=== PATIENT | male | born 1970 | race Two or more races ===

== ENCOUNTER 2024-07-09 21:50 | Emergency (ER) | payer MEDICAID, SELFPAY ==
[2024-07-09 21:53] VITALS: BMI 32.9
--- NOTE | 2024-07-09 22:12 | EKG_ITS ---
[facility] Test Date: 2024-07-09 Pat Name: KENDY WHITT Department: Room: - Gender: Male [employer]: : 1970 Requested By: Angel Coronado Order Number: [id number] Reading MD: Angel Coronado Measurements Intervals [place] Rate: 81 P: 32 MD: 163 QRS: 7 QRSD: 93 T: 31 QT: 368 QTc: 429 Interpretive Statements SINUS RHYTHM No previous ECG available for comparison /store/S0/[id number]/ecg/[id number].pdf
[2024-07-09 22:54] VITALS: BP 179/94; PULSE 80; RESP 19; TEMP 36.6; O2SAT 98
--- NOTE | 2024-07-09 23:13 | XR_ITS ---
Examination: CT brain head without contrast. 2-D sagittal coronal reconstructions Date and time of exam:July 09, 2024 11:31 PM INDICATIONS: Dizziness nausea vomiting today CTDI: vol (mGy):48.7 DLP: (mGycm):1003 Technique: Multiple CT axial sections of the brain have been obtained, 5 mm slice thickness. Contrast has not been administered. 2-D sagittal, coronal reconstructions have been obtained Low dose protocols were performed. One or more of the following dose reduction techniques were used; automated exposure control, adjustment of the mA and/or KV according to patient size, use of iterative reconstruction technique. Findings: No significant ventricular enlargement. Intra-axial or extra-axial hemorrhage density is not seen. No mass effect or midline shift Basal cisterns are not remarkable. Fourth ventricle is midline. Cranial vault intact. Chronic maxillary sinusitis Impression: Negative for acute hemorrhage, mass effect or midline shift Advise clinical correlation and follow up accordingly
--- NOTE | 2024-07-09 23:13 | XR_ITS ---
Examination: PA chest single view TECHNIQUE: Upright PA chest single view Exam date and time: July 09, 2024 11:25 PM INDICATIONS: Onset weakness today FINDINGS: Normal heart size. The lungs are clear. The osseous structures are intact IMPRESSION: No active disease
--- NOTE | 2024-07-09 23:14 | PD.EDRME ---
Rapid Medical Screening Exam [facility] Arrival date/time: 07/09/24 21:50 54M with history of DM and HTN (not very adherent with meds for both conditions) presents to ED with dizziness, generalized weakness, and some N/V. Patient also has a mild GUZMAN. Symptoms started this afternoon. Chief Complaint: Dizziness Vital signs: Vital Signs Temperature 97.9 F 07/09/24 22:54 Pulse Rate 80 07/09/24 22:54 Respiratory Rate 19 07/09/24 22:54 Blood Pressure 179/94 H 07/09/24 22:54 Pulse Oximetry (%) 98 07/09/24 22:54 Oxygen Delivery Method Room Air 07/09/24 22:54
[2024-07-09 23:37] LABS: Collection Type, Urine Clean Catch; Squamous Epithelial Cell,Urine 0 /hpf (0-5)
[2024-07-10 00:21] LABS: Beta Hydroxybutyrate 0.1 mmol/L (<0.6)
[2024-07-10 00:26] LABS: Basophils % (Auto) 0 % (0-2.5); Eosinophils # (Auto) 0.1 Thou/mm3 (0.0-0.5); Eosinophils % (Auto) 2 % (0-10); Hematocrit 38.5 % (41.0-53.0); Hemoglobin 13.3 g/dL (13.5-16.0); Immature Granulocytes % (Auto) 0 % (0-0); Immature Granulocytes Auto 0.01 Thou/mm3 (0.00-0.00); Lymphocytes # (Auto) 0.9 Thou/mm3 (1.0-4.8); Lymphocytes % (Auto) 17 % (10-50); Mean Corpuscular HGB Conc 34.5 g/dl (31.0-37.0); Mean Corpuscular Hemoglobin 28.6 pg (25.0-35.0); Mean Corpuscular Volume 83 fL (80-100); Monocytes # (Auto) 0.5 Thou/mm3 (0.0-0.8); Monocytes % (Auto) 9 % (0-12); Neutrophils # (Auto) 3.9 Thou/mm3 (1.8-7.7); Neutrophils % (Auto) 72 % (37-80); Nucleated Red Blood Cell % 0 /100 WBC (0); Platelet Count 139 Thou/mm3 (140-440); RDW Standard Deviation 37.6 fL (35.1-43.9); Red Blood Count 4.65 Miln/mm3 (4.50-5.90); White Blood Count 5.4 Thou/mm3 (3.8-10.6)
[2024-07-10 00:30] LABS: Ammonia 33 uMol/L (11-32)
[2024-07-10 00:35] LABS: INR 1.1 (0.9-1.3); Partial Thromboplastin Time 29.6 Seconds (22.0-36.0); Prothrombin Time 12.4 Seconds (9.0-12.2)
[2024-07-10 00:42] LABS: Bilirubin,Urine Negative (Negative); Blood,Urine Trace (Negative); Clarity,Urine Clear (Clear/Hazy); Color,Urine Yellow (Lt Yel-Yel); Glucose, Urine 4+ (Negative); Ketones,Urine Negative (Negative); Leukocyte Esterase,Urine Negative (Negative); Nitrite,Urine Negative (Negative); PH,Urine 6.5 (5.0-7.0); Protein,Urine 1+ (Neg - Trace); RBC,Urine 4 /hpf (0-3); Specific Gravity,Urine 1.025 (1.001-1.035); WBC,Urine 4 /hpf (0-5)
[2024-07-10 01:10] LABS: Amphetamine/Methamp Scrn,U Negative (Negative); Barbiturate Screen,Urine Negative (Negative); Benzodiazepines Screen,Urine Negative (Negative); Benzoylecgonine Screen, Ur Negative (Negative); Fentanyl Screen,Urine Negative (Negative); Opiate Screen,Urine Negative (Negative); THC Screen,Urine Negative (Negative)
[2024-07-10 01:26] LABS: Alanine Aminotransferase 35 U/L (10-49); Albumin, Serum 4.4 gm/dL (3.5-5.0); Albumin/Globulin Ratio 1.3 (1.2-2.2); Alcohol, Blood Medical < 3.0 mg/dL (0-10.0); Alkaline Phosphatase 174 U/L (46-116); Anion Gap 7 (7-16); Aspartate Amino Transferase 33 U/L (0-34); BUN/Creatinine Ratio 15 Ratio (12-20); Bilirubin,Total 0.7 mg/dL (0.3-1.2); Blood Urea Nitrogen 9 mg/dL (9-23); Calcium 8.8 mg/dL (8.3-10.6); Calcium (Corrected) 8.8 mg/dL (8.5-10.1); Chloride 101 mMol/L (98-107); Creatinine (Component) 0.6 mg/dL (0.6-1.3); Estimated Creatinine Clearance 133.3 mL/min (>60); Globulin 3.3 gm/dL (2.3-3.5); Glucose 288 mg/dL (74-106); Lipase 32 U/L (12-53); Osmolality,Calculated 279 (275-295); Potassium 3.8 mMol/L (3.4-5.1); Sodium 135 mMol/L (136-145); Total Protein 7.7 gm/dL (5.7-8.2); Troponin I < 0.020 ng/mL (0.0-0.045); eGFR > 60 See Note
--- NOTE | 2024-07-10 02:07 | PD.EDDIZZY ---
ED Dizzyness RME/HPI General Chief Complaint: Dizziness Stated Complaint: DIABETES, N/V DIZZY Arrival date/time: 07/09/24 21:50 RME / HPI RME / HPI Narrative: 07/09/24 21:50 54M with history of DM and HTN (not very adherent with meds for both conditions) presents to ED with dizziness, generalized weakness, and some N/V. Patient also has a mild GUZMAN. Symptoms started this afternoon. --------- Dr. Franco?s Main ED Evaluation: 54yo male with a history of DM, HTN presents to the ED for a chief complaint of dizziness x 1 day. Patient states I feel like I'm drunk and the room is moving . He notes he had 2 emetic episodes today. He denies any headache, weakness or any other associated. Patient states the last time he felt like this was when he was first diagnosed with diabetes 1 year ago. He is not on any medications and is getting them on Saturday . No known allergies. Related Data Allergies Allergy/AdvReac Type Severity Reaction Status Date / Time NKA* Allergy Uncoded 12/31/09 19:23 Review of Systems Review of Systems Systems Reviewed: All systems reviewed, normal except as documented Narrative Review of Systems: Gen: No fever, no chills, no weight loss EYES: No discharge, no visual changes, no pain HEENT: No ear pain, no congestion, no sore throat PULM: No shortness of breath, no cough, no congestion CV: No chest pain, no dyspnea on exertion, no palpitations GI: No nausea, no vomiting, no diarrhea, no pain, no constipation : No frequency, no urgency, no dysuria Musc/skel: No joint pain, no back pain Skin: No rash. Warm and dry. Psyc: No hallucinations, no depression Heme/Lymph: No easy bleeding or bruising tendencies Neuro: No weakness, no headache, + dizziness Past Medical History Social History SMOKING STATUS: Never smoker ED Exam Narrative Physical exam: GENERAL APPEARANCE: alert and oriented x 4, well-developed, well-nourished, no acute distress VITALS: All vitals were reviewed and the pulse ox is 98% on room air, which is normal according to my interpretation. HEENT: Normocephalic, atraumatic; pupils equal, round, reactive to light; EOMI; mild right horizontal nystagmus; mucous membranes pink, moist; oropharynx clear NECK: Supple LUNGS: CTABL; no wheezes, no rales, no rhonchi HEART: Regular rate, regular rhythm; normal S1, S2; no murmurs ABDOMEN: non distended; normal BS; soft, no tenderness, no guarding, no rebound; no masses, no organomegaly, no hernia BACK: no CVA tenderness EXTREMITIES: atraumatic; no edema NEUROLOGIC: awake; alert and oriented x4; cranial nerves II-XII grossly intact; no focal sensory or motor deficits; no intention tremor, steccato speech, dysmetria or dysdiadochokinesia PSYCHIATRIC: appropriate mood and affect SKIN: warm, dry, normal color; no rashes Course Course Course Narrative: CXR is ordered for determining the etiology of dizziness. Quality Measures none Orders Category Date Time Status Blood glucose [Bedside Blood Glucose] NOW Care 07/09/24 22:12 Active EKG (ED ONLY) *Do not use* NOW Care 07/09/24 22:[address] head/brain wo con Stat Exams 07/09/24 23:13 Completed EKG (ED Only) Stat Exams 07/09/24 22:12 Draft XR chest 1V portable Stat Exams 07/09/24 23:13 Completed Alcohol, Blood Medical Stat Lab 07/09/24 23:57 Completed Ammonia Stat Lab 07/09/24 23:57 Completed Beta Hydroxybutyrate Stat Lab 07/09/24 23:57 Completed CBC Stat Lab 07/09/24 23:57 Completed Comprehensive Metabolic Panel Stat Lab 07/09/24 23:57 Completed Drug Screen,Urine Stat Lab 07/09/24 23:25 Completed Lipase Stat Lab 07/09/24 23:57 Completed Partial Thromboplastin Time Stat Lab 07/09/24 23:57 Completed Prothrombin Time with INR Stat Lab 07/09/24 23:57 Completed Troponin I Stat Lab 07/09/24 23:57 Completed Urinalysis Stat Lab 07/09/24 23:25 Completed Vital Signs Vital signs: Vital Signs Temperature 97.9 F 07/09/24 22:54 Pulse Rate 80 07/09/24 22:54 Respiratory Rate 19 07/09/24 22:54 Blood Pressure 179/94 H 07/09/24 22:54 Pulse Oximetry (%) 98 07/09/24 22:54 Oxygen Delivery Method Room Air 07/09/24 22:54 Dizziness MDM Narrative MDM Narrative:: Scribe Attestation: 07/10/24 - Barbara Warner am scribing for and in the presence of Dr. Franco. Patient data External records reviewed:: [facility] previous records (Per chart review, patient has no previous ED visits or admissions to this facility.) Clinical information provided by:: patient Social determinants that could affect healthcare access:: none Patient has the following chronic illnesses:: DM, HTN How is presenting disease/condition affected by chronic disease/condition?: uneffected by Evaluation data The following diagnostics were reviewed and interpreted by me:: lab results, radiology exam(s) and EKG tracing(s) Lab and/or radiology exams considered but not ordered:: none Interpretation Summary: CBC is normal, Glucose is 288, troponin is normal, Lipase is normal, Anion Gap is normal, Beta Hydroxybutyrate is normal, UA is unremarkable, Blood Alcohol is negative, UDS is negative, according to my interpretation. EKG done at 2259, NSR, rate of 81, normal axis, no ectopy, no acute ischemia, according to my interpretation. --------- [place] [facility] Report Signed Patient: KENDY WHITT [facility]. Record#: [id number] Birthdate: 1970 Age/Sex: 54 / M Location: [facility] Attending Dr: Ordering Physician: Angel Coronado PA-C Date of Service: 07/09/24 Procedure(s): XR chest 1V portable Accession Number(s): [id number] cc: Tyler Buchanan MD; Angel Coronado PA-C~ Examination: PA chest single view TECHNIQUE: Upright PA chest single view Exam date and time: July 09, 2024 11:25 PM INDICATIONS: Onset weakness today FINDINGS: Normal heart size. The lungs are clear. The osseous structures are intact IMPRESSION: No active disease Dictated By: Tyler Buchanan MD Signed By: <Electronically signed by Tyler Buchanan MD in OV> 07/09/24 4488 [place] [facility] Report Signed Patient: KENDY WHITT [facility]. Record#: [id number] Birthdate: 1970 Age/Sex: 54 / M Location: [facility] Attending Dr: Ordering Physician: Angel Coronado PA-C Date of Service: 07/09/24 Procedure(s): CT head/brain wo con Accession Number(s): [id number] cc: Tyler Buchanan MD; Angel Coronado PA-C~ Examination: CT brain head without contrast. 2-D sagittal coronal reconstructions Date and time of exam:July 09, 2024 11:31 PM INDICATIONS: Dizziness nausea vomiting today CTDI: vol (mGy):48.7 DLP: (mGycm):1003 Technique: Multiple CT axial sections of the brain have been obtained, 5 mm slice thickness. Contrast has not been administered. 2-D sagittal, coronal reconstructions have been obtained Low dose protocols were performed. One or more of the following dose reduction techniques were used; automated exposure control, adjustment of the mA and/or KV according to patient size, use of iterative reconstruction technique. Findings: No significant ventricular enlargement. Intra-axial or extra-axial hemorrhage density is not seen. No mass effect or midline shift Basal cisterns are not remarkable. Fourth ventricle is midline. Cranial vault intact. Chronic maxillary sinusitis Impression: Negative for acute hemorrhage, mass effect or midline shift Advise clinical correlation and follow up accordingly Dictated By: Tyler Buchanan MD Signed By: <Electronically signed by Tyler Buchanan MD in OV> 07/10/24 0000 Medications / Prescriptions Medications or Prescriptions considered but not ordered:: none Medication administrations:: none Consultations Consultation(s) initiated? (list below): No Diagnosis Dizziness Differential Diagnosis: other (peripheral vertigo, central vertigo, cluster headache, tension headache, DKA, hyperosmolar state) Most likely diagnosis given after review of the tests above:: see below Admission Indicated Admission indicated?: not indicated Admission Request Was there a request for admission?: No Disposition Plan Disposition Plan: Discharge Discharge Attestation Discharge Attestation: The patient and all family members were given an opportunity to ask questions and understood the discharge instructions. Discharge instructions specifically effects, indications for sooner follow up or return to the emergency department, and the expected course of current diagnosis. Patient condition: Stable Discharge Plan Plan Patient Disposition: HOME (Self Care) Disposition Comment: Stable for discharge Patient condition on transfer: Stable Prescriptions/Referrals Referrals: [facility] [Outside] - In 1 week Victor Hugo Welsh MD [Primary Care Provider] - In 1 week Problem List Clinical Impression: Vertigo, Vomiting Patient/Caregiver Discharge Instructions Discharge Activity: activity as tolerated Education Materials: Vertigo Medicine Tx, ED Vomiting (Adult) Additional Instructions: Please return to the emergency department for any worsening or any further medical problems Otherwise you should follow-up with your primary care doctor within the next several days or follow-up in the family health care clinic. Print Language: Luxembourgish Stand Alone Forms: [facility] Award Info., Patient Portal Info Letter
[2024-07-10 02:31] VITALS: BP 173/92; PULSE 76; RESP 18; TEMP 37; O2SAT 99
== END 2024-07-10 02:50 | disposition home or self-care (01) ==
PROVIDERS: Physician Assistant; Emergency Provider Emergency Medicine; PCP Family Medicine
DX: R42 Dizziness and giddiness (principal); R11.2 Nausea with vomiting, unspecified; E11.9 Type 2 diabetes mellitus without complications; I10 Essential (primary) hypertension
CPT/HCPCS: 36415; 70450; 71045; 80053; 80307; 80320; 81001; 82010; 82140; 83690; 84484; 85025; 85610; 85730; 93005; 99284; G0480